=== PATIENT | male | born 2000 | race Caucasian/White ===

== ENCOUNTER 2019-06-06 20:02 | Emergency (ER) | payer SELFPAY ==
[~2019-06-06] VITALS: Ht 167.6 cm; Wt 97.5 kg
[2019-06-06 20:10] VITALS: BP 129/72
--- NOTE | 2019-06-06 20:13 | NUR ---
TO LOBY A/W BED AMBULATORY
--- NOTE | 2019-06-06 20:50 | NUR ---
TO GERALDO Ross FROM [facility]
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
[2019-06-06] MEDS ORDERED: ACETAMINOPHEN 325 MG TAB PO ONE ×2 (21:25→21:35)
--- NOTE | 2019-06-06 21:25 | NUR ---
SHADIA WRAP APPLIED ON PT R WRIST. +CSM
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
--- NOTE | 2019-06-06 21:37 | NUR ---
PATIENT SHADIA WRAP IN PLACE. +CMS. PATIENT STATES NO LOSS IN SENSATION OR MOVEMENT.
[2019-06-06 22:05] VITALS: BP 129/72
== END 2019-06-06 22:11 | disposition home or self-care (01) ==
LOC: MED 20:02
DX: S66.911A Strain of unspecified muscle, fascia and tendon at wrist and hand level, right hand, initial encounter (principal); W23.0XXA Caught, crushed, jammed, or pinched between moving objects, initial encounter; Y93.89 Activity, other specified; Y92.89 Other specified places as the place of occurrence of the external cause; Y99.8 Other external cause status
CPT/HCPCS: 73130; 99283